=== PATIENT | female | born 1930 | race Caucasian/White ===

== ENCOUNTER 2019-11-21 09:53 | Emergency (ER) | payer MEDICARE, MEDICAID ==
[~2019-11-21] VITALS: Ht 160 cm; Wt 72.7 kg
[2019-11-21 10:01] VITALS: Ht 160 cm; Wt 72.7 kg
[2019-11-21 10:36] LABS: BASOPHILS 0.2 % (0-2); EOSINOPHILS 1.5 % (0-7); HEMATOCRIT 42.5 % (36.0-48.0); HEMOGLOBIN 13.8 g/dL (12-16); LYMPHOCYTES 20.7 % (15-50); MCH 27.8 pg (26.0-34.0); MCHC 32.5 g/dL (31.0-37.0); MCV 85.5 fL (80.0-100.0); MEAN PLATELET VOLUME 10.3 fL (7.4-10.4); NEUTROPHILS 67.6 % (40-80); PLATELET COUNT 195 10x3/uL (130-400); RBC 4.97 10x6/uL (4.00-5.40); RDW 14.7 % (11.5-14.5); WBC 5.9 10x3/uL (4.8-10.8)
[2019-11-21 10:49] LABS: BILIRUBIN NEGATIVE (NEGATIVE); KETONE NEGATIVE (NEGATIVE); NITRITE NEGATIVE (NEGATIVE); UROBILINOGEN NORMAL mg/dL (< 2)
[2019-11-21 10:52] LABS: CALC OSMOLALITY 278 mosm/kg (275-300); CARBON DIOXIDE 25.8 mmol/L (21.0-32.0); CHLORIDE - SERUM 106 mmol/L (98-107); CREATININE - SERUM 0.7 mg/dL (0.6-1.3); GLUCOSE 87 mg/dL (74-106); POTASSIUM - SERUM 3.7 mmol/L (3.5-5.1); SODIUM 141 mmol/L (136-145); UREA NITROGEN 9 mg/dL (7-18); eGFR NON AFRICAN AMERICAN 84 mL/min (90-120)
[2019-11-21 10:55] LABS: ALKALINE PHOSPHATASE 73 U/L (30-120); ALT (SGPT) 19 U/L (10-68); BILIRUBIN - TOTAL 0.38 mg/dL (0.2-1.3); PROTEIN - SERUM 7.8 g/dL (6.4-8.2)
[2019-11-21 11:25] LABS: LIPASE 120 U/L (73-393); TROPONIN-I < 0.017 ng/mL (0.000-0.060)
[2019-11-21] MEDS ORDERED: BENTYL10 MG PO (12:20)
[2019-11-21 12:55] VITALS: BP 183/94
== END 2019-11-21 12:55 | disposition home or self-care (01) ==
LOC: D.ER 09:53
PROVIDERS: Family Medicine
DX: R10.30 Lower abdominal pain, unspecified (principal); K57.90 Diverticulosis of intestine, part unspecified, without perforation or abscess without bleeding; K44.9 Diaphragmatic hernia without obstruction or gangrene; M54.5 Low back pain